=== PATIENT | male | born 1955 | race American Indian/Alaskan Native ===

== ENCOUNTER 2017-01-29 14:16 | Emergency (ER) | payer SELFPAY ==
[2017-01-29 14:44] VITALS: BP 133/76
[2017-01-29] MEDS ORDERED: XYLOCAINE 1% 20 mL INFILTRATI ONE (15:01)
[2017-01-29] MEDS ORDERED: BOOSTRIX IM ONE (15:01)
--- NOTE | 2017-01-29 15:07 | Emergency Department Report ---
ED Upper Extremity Inj HPI - General Chief Complaint: Extremity Injury, Upper Stated Complaint: RT FINGER CUT Time Seen by Provider: 01/29/17 14:49 Source: patient Mode of arrival: Ambulatory Limitations: No Limitations - History of Present Illness Initial Comments: Patient comes in the ER today with complaints of right third finger injury while at work today. Patient states that he was unloading a progress off the back of a truck when somehow it slid and his finger got caught in between it and the truck. Patient states that he went to urgent care and they wrapped it up and sent him here without any additional treatment. Patient unsure of last tetanus immunization. She denies any other injury. MD Complaint: Injury to:: right, finger -: Sudden Place: work Improves With: other (pressure bandage) Worsens With: movement of extremity Context: laceration, crush Associated Symptoms: denies other symptoms Treatments Prior to Arrival: other - Related Data Previous Rx's Medication Instructions Recorded Last Taken Type Cephalexin [Keflex] 500 mg PO TID #30 capsule 01/29/17 Unknown Rx traMADol [Ultram] 50 mg PO Q4HR PRN #20 tablet 01/29/17 Unknown Rx Allergies Allergy/AdvReac Type Severity Reaction Status Date / Time codeine Allergy Rash Verified 01/29/17 14:38 ED Review of Systems ROS: Stated complaint: RT FINGER CUT Other details as noted in HPI Constitutional: denies: chills, fever Eyes: denies: eye pain, eye discharge, vision change ENT: denies: ear pain, throat pain Respiratory: denies: cough, shortness of breath, wheezing Cardiovascular: denies: chest pain, palpitations Endocrine: no symptoms reported Gastrointestinal: denies: abdominal pain, nausea, diarrhea Genitourinary: denies: urgency, dysuria Musculoskeletal: denies: back pain, joint swelling, arthralgia Skin: denies: rash, lesions Neurological: denies: headache, weakness, paresthesias Psychiatric: denies: anxiety, depression Hematological/Lymphatic: denies: easy bleeding, easy bruising ED Past Medical Hx - Past Medical History Previous Medical History?: Yes Hx Liver Disease: Yes (cirrhosis) Hx of Cancer: Yes (liver) Hx Asthma: Yes Additional medical history: diverticulitis - Surgical History Past Surgical History?: Yes Hx Cholecystectomy: Yes Additional Surgical History: T&A, Rectal surgery x 2, Nasal surgery - Social History Smoking Status: Former Smoker Substance Use Type: Prescribed - Medications Home Medications: Home Medications Medication Instructions Recorded Confirmed Last Taken Type Cephalexin [Keflex] 500 mg PO TID #30 capsule 01/29/17 Unknown Rx traMADol [Ultram] 50 mg PO Q4HR PRN #20 tablet 01/29/17 Unknown Rx ED Physical Exam - General Limitations: No Limitations General appearance: alert, in no apparent distress - Head Head exam: Present: atraumatic, normocephalic - Eye Eye exam: Present: normal appearance - ENT ENT exam: Present: mucous membranes moist - Neck Neck exam: Present: normal inspection - Respiratory Respiratory exam: Present: normal lung sounds bilaterally. Absent: respiratory distress - Cardiovascular Cardiovascular Exam: Present: regular rate, normal rhythm. Absent: systolic murmur, diastolic murmur, rubs, gallop - GI/Abdominal GI/Abdominal exam: Present: soft, normal bowel sounds - Rectal Rectal exam: Present: deferred - Extremities Exam Extremities exam: Present: normal inspection - Expanded Upper Extremity Exam Right Hand Wrist exam: Present: tenderness (2 cm flap-like subcutaneous laceration noted to distal medial portion of right third finger no nail involvement noted. No active bleeding on initial evaluation.), laceration - Back Exam Back exam: Present: normal inspection - Neurological Exam Neurological exam: Present: alert, oriented X3 - Psychiatric Psychiatric exam: Present: normal affect, normal mood - Skin Skin exam: Present: warm, dry, intact, normal color. Absent: rash ED Course Vital Signs 01/29/17 14:38 Temperature 98.1 F Pulse Rate 83 Respiratory 20 Rate Blood Pressure 133/76 O2 Sat by Pulse 98 Oximetry - Laceration /Wound Repair Right Anterior Medial Finger Wound Location: upper extremity (right anterior medial distal third finger) Wound Length (cm): 2 Wound's Depth, Shape: flap Wound Explored: foreign body removed (debris removed from wound) Betadine Prep?: Yes Anesthesia: 1% Lidocaine Volume Anesthetic (ccs): 2 Wound Repaired With: sutures Suture Size/Type: 4:0, proline Number of Sutures: 9 Layer Closure?: No Sterile Dressing Applied?: Yes ED Medical Decision Making - Radiology Data Radiology results: image reviewed interpreted by me: No bone injury noted to x-ray images - Medical Decision Making Patient is nontoxic and hemodynamically stable. Laceration repaired without any difficulty or complications. Patient tolerated procedure very well. Wound was bandaged with nonadherent N Kub[place] pressure dressing. Per work comp protocol , drug testing done in the ER. I will start patient on some antibiotics as well as prescribed some pain medications for asymptomatic needs. Patient is stable for discharge and is agreement with treatment plan. Critical care attestation.: If time is entered above; I have spent that time in minutes in the direct care of this critically ill patient, excluding procedure time. ED Disposition Clinical Impression: Finger laceration Disposition: DISCHARGED TO HOME OR SELFCARE Is pt being admited?: No Does the pt Need Aspirin: No Condition: Good Instructions: Finger Laceration (ED) Prescriptions: Cephalexin [Keflex] 500 mg PO TID #30 capsule traMADol [Ultram] 50 mg PO Q4HR PRN #20 tablet PRN Reason: Pain Referrals: PRIMARY CARE,MD [Primary Care Provider] - 3-5 Days [facility], ER [Other] - 02/08/17 Time of Disposition: 16:22
[2017-01-29] MEDS ORDERED: NACL 0.9% IR ONE (15:09)
--- NOTE | 2017-01-29 16:40 | XRay Report ---
Right third finger, 3 views. Findings: There are no fractures or other acute findings.
== END 2017-01-29 17:00 | disposition home or self-care (01) ==
LOC: ED 14:16
DX: S61.212A Laceration without foreign body of right middle finger without damage to nail, initial encounter (principal); K74.60 Unspecified cirrhosis of liver; J45.909 Unspecified asthma, uncomplicated; Z87.891 Personal history of nicotine dependence; Z88.5 Allergy status to narcotic agent; Z90.49 Acquired absence of other specified parts of digestive tract; W23.0XXA Caught, crushed, jammed, or pinched between moving objects, initial encounter; Y93.89 Activity, other specified; Y99.8 Other external cause status; Y92.89 Other specified places as the place of occurrence of the external cause
CPT/HCPCS: 90471; 90715

== ENCOUNTER 2017-02-10 12:04 | Emergency (ER) | payer SELFPAY ==
[2017-02-10 12:50] VITALS: BP 128/81
--- NOTE | 2017-02-10 13:26 | Emergency Department Report ---
Suture/Staple Removal - HPI Chief Complaint: Laceration/Recheck/Suture Stated Complaint: STITCHES REMOVAL Time Seen by Provider: 02/10/17 13:08 Wound Location: right middle finger ED Review of Systems ROS: Stated complaint: STITCHES REMOVAL Other details as noted in HPI Constitutional: denies: chills, fever Eyes: denies: eye pain, eye discharge, vision change ENT: denies: ear pain, throat pain Respiratory: denies: cough, shortness of breath, wheezing Cardiovascular: as per HPI Endocrine: no symptoms reported Gastrointestinal: denies: abdominal pain, nausea, diarrhea Genitourinary: denies: urgency, dysuria Musculoskeletal: denies: back pain, joint swelling, arthralgia Skin: denies: rash, lesions Neurological: denies: headache, weakness, paresthesias Psychiatric: denies: anxiety, depression Hematological/Lymphatic: denies: easy bleeding, easy bruising ED Past Medical Hx - Past Medical History Previous Medical History?: Yes Hx Liver Disease: Yes (cirrhosis) Hx Asthma: Yes Additional medical history: diverticulitis - Surgical History Past Surgical History?: Yes Hx Cholecystectomy: Yes Additional Surgical History: T&A, Rectal surgery x 2, Nasal surgery - Social History Smoking Status: Never Smoker Substance Use Type: None - Medications Home Medications: Home Medications Medication Instructions Recorded Confirmed Last Taken Type Cephalexin [Keflex] 500 mg PO TID #30 capsule 01/29/17 Unknown Rx traMADol [Ultram] 50 mg PO Q4HR PRN #20 tablet 01/29/17 Unknown Rx Suture Removal Exam - Exam General: Vital signs noted. No distress. Alert and acting appropriately. Wound: No Pathologic Erythema, No Tenderness, No Drainage, No Pus, No Wound Dehiscence Other Systems: All other systems reviewed and are unremarkable. ED Course Vital Signs 02/10/17 12:47 Temperature 98.4 F Pulse Rate 84 Respiratory 22 Rate Blood Pressure 128/81 O2 Sat by Pulse 99 Oximetry ED Recheck MDM - Differential Diagnosis Suture/Staple Removal - Medical Decision Making able to removal 9 sutures Critical care attestation.: If time is entered above; I have spent that time in minutes in the direct care of this critically ill patient, excluding procedure time. ED Disposition Clinical Impression: Encounter for removal of sutures Disposition: DISCHARGED TO HOME OR SELFCARE Is pt being admited?: No Does the pt Need Aspirin: No Condition: Stable Instructions: Suture Removal (ED) Referrals: PRIMARY CARE, [Primary Care Provider] - 3-5 Days
== END 2017-02-10 13:10 | disposition home or self-care (01) ==
LOC: ED 12:04
DX: S61.219D Laceration without foreign body of unspecified finger without damage to nail, subsequent encounter (principal); K74.60 Unspecified cirrhosis of liver; J45.909 Unspecified asthma, uncomplicated; Y99.8 Other external cause status; X58.XXXD Exposure to other specified factors, subsequent encounter; Y92.89 Other specified places as the place of occurrence of the external cause; Z88.5 Allergy status to narcotic agent